=== PATIENT | male | born 1950 | race Asian ===

== ENCOUNTER 2016-08-12 17:25 | Outpatient (CLI) | payer OTHER ==
[2016-08-12 17:43] LABS: PLATELET COUNT 112 K/uL (142-355)
[2016-08-12 18:15] LABS: POTASSIUM 4.2 mmol/L (3.6-5.2); SODIUM 133 mmol/L (136-145)
== END 2016-08-12 19:13 | disposition home or self-care (01) ==
LOC: LABW 17:25
PROVIDERS: Registered Nurse
DX: C15.9 Malignant neoplasm of esophagus, unspecified (principal); Z41.8 Encounter for other procedures for purposes other than remedying health state
CPT/HCPCS: 36415; 80053; 85027

== ENCOUNTER 2016-08-19 17:16 | Outpatient (CLI) | payer OTHER | END 2016-08-19 18:16 | disposition home or self-care (01) | LOC: LABW 17:16 | DX: E83.52 Hypercalcemia (principal); C15.9 Malignant neoplasm of esophagus, unspecified; Z41.8 Encounter for other procedures for purposes other than remedying health state | CPT/HCPCS: 36415; 82330 ==

== ENCOUNTER 2016-08-26 16:04 | Outpatient (CLI) | payer OTHER ==
[2016-08-26 16:23] LABS: PLATELET COUNT 140 K/uL (142-355)
[2016-08-26 16:46] LABS: POTASSIUM 3.9 mmol/L (3.6-5.2); SODIUM 133 mmol/L (136-145)
== END 2016-08-26 21:10 | disposition home or self-care (01) ==
LOC: LABW 16:04
PROVIDERS: Internal Medicine Hematology & Oncology
DX: C15.9 Malignant neoplasm of esophagus, unspecified (principal); Z41.8 Encounter for other procedures for purposes other than remedying health state; C80.1 Malignant (primary) neoplasm, unspecified
CPT/HCPCS: 36415; 80053; 85027

== ENCOUNTER 2016-09-23 18:34 | Outpatient (CLI) | payer OTHER ==
[2016-09-23 19:49] LABS: PLATELET COUNT 112 K/uL (142-355)
[2016-09-23 20:01] LABS: POTASSIUM 4.3 mmol/L (3.6-5.2); SODIUM 137 mmol/L (136-145)
== END 2016-09-23 21:04 | disposition home or self-care (01) ==
LOC: LABW 18:34
PROVIDERS: Internal Medicine Hematology & Oncology
DX: I10 Essential (primary) hypertension (principal); E78.4 Other hyperlipidemia; C15.9 Malignant neoplasm of esophagus, unspecified; R82.99 Other abnormal findings in urine
CPT/HCPCS: 80053; 80061; 80185; 81000; 84443; 85027; 87077; 87086; 87088; 87186

== ENCOUNTER 2017-05-09 02:58 | Emergency (ER) | payer OTHER ==
[~2017-05-09] VITALS: Ht 175.3 cm; Wt 71.2 kg
[2017-05-09 03:22] VITALS: BP 123/85; TEMP 98.5
== END 2017-05-09 03:24 | disposition home or self-care (01) ==
LOC: ED 02:58
DX: K94.29 Other complications of gastrostomy (principal); Z43.1 Encounter for attention to gastrostomy
CPT/HCPCS: 99281

== ENCOUNTER → 2017-06-13 18:26 | Outpatient (CLI) | payer OTHER | END | disposition E | LOC: AMB 18:26 | DX: I46.9 Cardiac arrest, cause unspecified (principal); K92.0 Hematemesis ==